=== PATIENT | male | born 1980 | race Caucasian/White ===

== ENCOUNTER 2022-04-20 06:23 | Emergency (ER) | payer MEDICAID ==
[2022-04-20] MEDS ORDERED: Sodium Chloride 0.9% 1,000 ML IV ONE (07:45)
[2022-04-20] MEDS ORDERED: Iopamidol 755 Mg/ML 100 ML Bottle IV ONE (09:11)
== END 2022-04-20 11:13 | disposition home or self-care (01) ==
LOC: MW.ED 06:23
DX: G89.29 Other chronic pain (principal); R10.9 Unspecified abdominal pain; E87.6 Hypokalemia
CPT/HCPCS: 74177; 96360; 99284; J7030; Q9967

== ENCOUNTER 2022-07-14 07:59 | Day surgery (SDC) | payer MEDICAID ==
[~2022-07-14 07:59] MED LIST: Lactated Ringers 1,000 ML IV SCH
[2022-07-14] MEDS ORDERED: Lidocaine 2% 5 ML SDV ONE (08:56)
[2022-07-14] MEDS ORDERED: Propofol 200 MG/20 ML SDV ONE ×3 (08:56→09:44)
[2022-07-14] MEDS ORDERED: Lactated Ringers 1,000 ML IV SCH (10:15)
== END 2022-07-14 10:48 | disposition home or self-care (01) ==
LOC: MW.SDS 07:59
PROVIDERS: ATTEND Surgery
DX: D12.2 Benign neoplasm of ascending colon (principal); K31.89 Other diseases of stomach and duodenum; F17.210 Nicotine dependence, cigarettes, uncomplicated; I10 Essential (primary) hypertension; F90.9 Attention-deficit hyperactivity disorder, unspecified type; E78.5 Hyperlipidemia, unspecified; J45.909 Unspecified asthma, uncomplicated; K21.9 Gastro-esophageal reflux disease without esophagitis; E66.9 Obesity, unspecified; Z68.37 Body mass index [BMI] 37.0-37.9, adult; Z88.6 Allergy status to analgesic agent; Z91.040 Latex allergy status; Z88.1 Allergy status to other antibiotic agents; Z88.2 Allergy status to sulfonamides; Z88.0 Allergy status to penicillin; Z88.8 Allergy status to other drugs, medicaments and biological substances; Z98.890 Other specified postprocedural states
CPT/HCPCS: 43239; 45380; J2704; J7120; 00813